=== PATIENT | female | born 1995 | race Two or more races ===

== ENCOUNTER 2022-09-05 17:37 | Emergency (ER) | payer OTHER ==
[~2022-09-05] VITALS: Ht 162.6 cm; Wt 70.8 kg
[2022-09-05] MEDS ORDERED: PEPCID AC20 MG PO (20:24)
== END 2022-09-05 20:40 | disposition home or self-care (01) ==
LOC: ER 17:37
DX: K52.0 Gastroenteritis and colitis due to radiation (principal); Z20.822 Contact with and (suspected) exposure to COVID-19